=== PATIENT | female | born 1960 | race Caucasian/White ===

== ENCOUNTER 2020-09-14 13:04 | Inpatient (IN) | payer OTHER ==
[~2020-09-14] VITALS: Ht 162.6 cm; Wt 98.0 kg
[2020-09-14] MEDS ORDERED: SODIUM CHLORIDE 0.9% 500 ML IV ONE (13:30)
[2020-09-14 14:36] LABS: BASOPHILS % 0.8 % (0.0-2.0); HEMATOCRIT. 42.5 % (36.0-48.0); HEMOGLOBIN. 14.4 g/dL (12.0-16.0); LYMPHOCYTES % 23.2 % (20.0-50.0); MEAN CORPUSCULAR HEMOGLOBIN 30.6 pg (28.0-32.0); MEAN CORPUSCULAR VOLUME 90.2 fL (81.0-99.0); MONOCYTES % 6.5 % (2.0-8.0); NEUTROPHILS % 69.5 % (40.0-76.0); PLATELET 218 x1000/uL (130-400); RED BLOOD CELL COUNT 4.71 mill/uL (4.2-5.4); RED CELL DISTRIBUTION WIDTH 14.4 % (11.6-14.6)
[2020-09-14 14:54] LABS: CHLORIDE 110 mEq/L (98-107)
[2020-09-14] MEDS ORDERED: NITROGLYCERIN OINT 1GM/INCH UDPKT TD ONE (15:00)
[2020-09-14] MEDS ORDERED: FUROSEMIDE 40MG/4ML VIAL IV ONE (15:00)
[2020-09-14] MEDS ORDERED: ASPIRIN 81MG TABLET PO ONE (15:00)
[2020-09-14] MEDS ORDERED: ONDANSETRON HCL 4MG/2ML INJ IV PRN (18:45)
[2020-09-14] MEDS ORDERED: HYDROCODONE/ACETAMINOPHEN 5/325MG TABLET PO PRN (18:45)
[2020-09-14] MEDS ORDERED: DOCUSATE SODIUM 100MG CAPSULE PO PRN (18:45)
[2020-09-14] MEDS ORDERED: ACETAMINOPHEN 325MG TABLET PO PRN (18:45)
[2020-09-14] MEDS ORDERED: GUAIFENESIN 200MG/10ML SUGAR FREE UDC PO PRN (18:45)
[2020-09-14] MEDS ORDERED: IPRATROPIUM/ALBUTEROL 0.5-3(2.5)MG/3ML NEB NEB PRN (18:45)
[2020-09-14] MEDS ORDERED: CLONIDINE 0.1MG TABLET PO PRN (18:45)
[2020-09-14] MEDS ORDERED: HEPARIN 5000 UNITS/ML VIAL IV PRN ×2 (18:45)
[2020-09-14] MEDS ORDERED: MAGNESIUM/ALUMINUM HYDROXIDE/SIMETHICONE 30ML UDC PO PRN (18:45)
[2020-09-14] MEDS ORDERED: HEPARIN 5000 UNITS/ML VIAL IV SCH (20:00)
[2020-09-14 20:04] LABS: INR 1.1; PARTIAL THROMBOPLASTIN TIME 35.3 sec (23.4-31.0); PROTHROMBIN TIME 11.6 sec (9.6-11.0)
[2020-09-14] MEDS ORDERED: ASPIRIN 81MG TABLET PO NR (20:30)
[2020-09-14] MEDS ORDERED: NITROGLYCERIN OINT 1GM/INCH UDPKT TD NR (20:30)
[2020-09-14] MEDS ORDERED: FUROSEMIDE 40MG/4ML VIAL IV NR (20:30)
[2020-09-14 23:00] VITALS: BP 136/75
[2020-09-14] MEDS ORDERED: IOHEXOL-350 100 ML BOTTLE ONE (23:37)
[2020-09-14 23:41] VITALS: BP 125/73
[2020-09-15] VITALS (11 sets, daily range): BP systolic 108–126; BP diastolic 43–76
[2020-09-15 00:24] LABS: CREATINE KINASE 100 IU/L (26-192)
[2020-09-15 06:00] LABS: BASOPHILS % 0.7 % (0.0-2.0); HEMOGLOBIN. 13.2 g/dL (12.0-16.0); LYMPHOCYTES % 25.8 % (20.0-50.0); MEAN CORPUSCULAR VOLUME 89.1 fL (81.0-99.0); MEAN PLATELET VOLUME 7.6 fl (7.4-10.4); MONOCYTES % 8.2 % (2.0-8.0); NEUTROPHILS % 65.3 % (40.0-76.0); PLATELET 211 x1000/uL (130-400); RED BLOOD CELL COUNT 4.27 mill/uL (4.2-5.4); RED CELL DISTRIBUTION WIDTH 14.5 % (11.6-14.6)
[2020-09-15 06:08] LABS: CHLORIDE 107 mEq/L (98-107)
[2020-09-15 06:22] LABS: LDL CHOLESTEROL 102 mg/dL (5-100)
[2020-09-15 06:23] LABS: CREATINE KINASE 84 IU/L (26-192); HDL CHOLESTEROL 41 mg/dL (40-59)
[2020-09-15 07:13] LABS: BG BASE EXCESS -1.9 mmol/L (-2.0-2.0); BG CARBOXYHEMOGLOBIN 0.3 % (0.5-1.5); BG DEOXYHEMOGLOBIN 1.9 % (0.0-5.0); BG FRACTION INSPIRED OXYGEN 28; BG HCO3 ACT 21.7 mmol/L (22.0-26.0); BG METHEMOGLOBIN 0.1 % (0.0-1.5); BG OXYGEN SATURATION 98.1 % (92.0-98.5); BG OXYHEMOGLOBIN 97.7 % (94.0-97.0); BG PCO2 33.9 mmHg (35.0-45.0); BG PH 7.425 (7.350-7.450); BG PO2 107.7 mmHg (75.0-100.0); BG SAMPLE SITE LEFT RADIAL; BG TOTAL HEMOGLOBIN 14.3 g/dL (12.0-18.0); BG VENT MODE NASAL CANNULA
[2020-09-15] MEDS: HEPARIN 25,000 UNITS PREMIX 250 ML IV PRN (17:32)
[2020-09-16] VITALS (11 sets, daily range): BP systolic 100–152; BP diastolic 54–92
[2020-09-16] MEDS ORDERED: IPRATROPIUM/ALBUTEROL 0.5-3(2.5)MG/3ML NEB HHN SCH (01:00)
[2020-09-16 05:58] LABS: CHLORIDE 108 mEq/L (98-107)
[2020-09-16 06:04] LABS: BASOPHILS % 0.7 % (0.0-2.0); HEMATOCRIT. 37.9 % (36.0-48.0); HEMOGLOBIN. 12.9 g/dL (12.0-16.0); MEAN CORPUSCULAR HEMOGLOBIN 30.7 pg (28.0-32.0); MEAN CORPUSCULAR VOLUME 90.2 fL (81.0-99.0); MEAN PLATELET VOLUME 8.2 fl (7.4-10.4); MONOCYTES % 8.3 % (2.0-8.0); PLATELET 204 x1000/uL (130-400); RED CELL DISTRIBUTION WIDTH 14.5 % (11.6-14.6)
[2020-09-16 15:09] LABS: CLARITY URINE TURBID (CLEAR); COLOR URINE YELLOW (YELLOW); KETONES URINE NEGATIVE (NEGATIVE); LEUKOCYTE ESTERASE URINE 3+ (NEGATIVE); NITRITE URINE POSITIVE (NEGATIVE); OCCULT BLOOD URINE 1+ (NEGATIVE); PH URINE >=9.0 (4.5-8.0); PROTEIN URINE 2+ (NEGATIVE); SPECIFIC GRAVITY URINE 1.023 (1.005-1.030)
[2020-09-16] MEDS: HEPARIN 25,000 UNITS PREMIX 250 ML IV PRN (16:09)
[2020-09-16] MEDS: HEPARIN 5000 UNITS/ML VIAL IV PRN (20:19)
[2020-09-17] VITALS (21 sets, daily range): BP systolic 92–161; BP diastolic 45–84
[2020-09-17] MEDS: HEPARIN 5000 UNITS/ML VIAL IV PRN (03:41)
[2020-09-17] MEDS ORDERED: [UNRECOGNIZED DRUG - REMARK] XX SCH (06:00)
[2020-09-17 07:50] LABS: BASOPHILS % 0.6 % (0.0-2.0); HEMATOCRIT. 39.2 % (36.0-48.0); HEMOGLOBIN. 13.3 g/dL (12.0-16.0); LYMPHOCYTES % 34.4 % (20.0-50.0); MEAN CORPUSCULAR HEMOGLOBIN 30.4 pg (28.0-32.0); MEAN CORPUSCULAR VOLUME 89.9 fL (81.0-99.0); MEAN PLATELET VOLUME 8.2 fl (7.4-10.4); MONOCYTES % 8.4 % (2.0-8.0); NEUTROPHILS % 56.6 % (40.0-76.0); PLATELET 198 x1000/uL (130-400); RED BLOOD CELL COUNT 4.36 mill/uL (4.2-5.4); RED CELL DISTRIBUTION WIDTH 14.1 % (11.6-14.6)
[2020-09-17 08:22] LABS: CHLORIDE 108 mEq/L (98-107)
[2020-09-17] MEDS: APIXABAN 5 MG TABLET PO SCH ×2 (08:30→17:40)
[2020-09-17] MEDS ORDERED: APIXABAN 5 MG TABLET PO SCH (09:00)
[2020-09-17] MEDS ORDERED: FUROSEMIDE 20MG/2ML VIAL IVP NR (14:45)
[2020-09-18] VITALS (12 sets, daily range): BP systolic 122–159; BP diastolic 63–98
[2020-09-18 06:44] LABS: BASOPHILS % 0.7 % (0.0-2.0); HEMOGLOBIN. 13.7 g/dL (12.0-16.0); LYMPHOCYTES % 37.4 % (20.0-50.0); MONOCYTES % 9.5 % (2.0-8.0); NEUTROPHILS % 52.4 % (40.0-76.0); PLATELET 194 x1000/uL (130-400); RED BLOOD CELL COUNT 4.56 mill/uL (4.2-5.4); RED CELL DISTRIBUTION WIDTH 14.4 % (11.6-14.6)
[2020-09-18 06:56] LABS: CHLORIDE 107 mEq/L (98-107)
[2020-09-18] MEDS: APIXABAN 5 MG TABLET PO SCH ×2 (09:26→17:54)
[2020-09-18] MEDS: NEBIVOLOL HCL 5 MG TABLET PO SCH (10:55)
[2020-09-18] MEDS: AMLODIPINE 2.5MG TABLET PO SCH (20:40)
[2020-09-19] VITALS (8 sets, daily range): BP systolic 106–141; BP diastolic 62–86
[2020-09-19] MEDS: APIXABAN 5 MG TABLET PO SCH (08:47)
[2020-09-19] MEDS: NEBIVOLOL HCL 5 MG TABLET PO SCH (08:48)
[2020-09-19] MEDS: AMLODIPINE 2.5MG TABLET PO SCH ×2 (08:50→09:20)
[2020-09-24] MEDS ORDERED: APIXABAN 5 MG TABLET PO SCH ×2 (09:00)
== END 2020-09-19 13:01 | disposition home health service (06) | DRG 175 ==
LOC: ER 13:04 → 3WST 17:31 → EDBEDREQ 17:34 → EDBEDREQTM 20:20 → EDBEDREQSVC 20:20 → ENRESERV 20:47
PROVIDERS: ADMIT Hospitalist; ATTEND Hospitalist
DX: I26.99 Other pulmonary embolism without acute cor pulmonale (principal); J96.01 Acute respiratory failure with hypoxia; R65.10 Systemic inflammatory response syndrome (SIRS) of non-infectious origin without acute organ dysfunction; E66.9 Obesity, unspecified; I11.0 Hypertensive heart disease with heart failure; I50.9 Heart failure, unspecified; M19.012 Primary osteoarthritis, left shoulder; M19.011 Primary osteoarthritis, right shoulder; R35.0 Frequency of micturition; Z68.37 Body mass index [BMI] 37.0-37.9, adult; Z79.899 Other long term (current) drug therapy
CPT/HCPCS: 36415; 36600; 71045; 71275; 80048; 80053; 80061; 81003; 82375; 82550; 82805; 83605; 83735; 83880; 84484; 85025; 93005; 93306; 93970; 97116; 97162; 99285; J1644; J1940; Q9967